=== PATIENT | male | born 1955 | race Caucasian/White ===

== ENCOUNTER 2024-12-17 09:56 | Outpatient (OUT) | payer OTHER, SELFPAY ==
--- NOTE | 2024-12-14 13:45 | V.VEINS.HP ---
Vital Signs 12/17/24 10:16 Height 5 ft 10 in Weight 104.326 kg BMI 33.0 BP 157/75 H BP Location Left Brachial BP Position Sitting BP Cuff Size Large Adult BP Source Automatic Cuff Respiration 18 Pulse 80 Pulse Source Monitor Pulse Oximetry (%) 99 Oxygen Delivery Method Room Air Comment The patient's blood pressure is elevated. Varicose Veins Patient is a 69 year old male in this day as a referral from Dr. Lucas secondary to multiple non-healing wounds which required multiple skin grafts. Patient c/o bilateral leg edema and numbness and weakness along with multiple wounds in the last year. Patient has worn bilateral leg knee high compression stockings for approximately 8-9 months. Patient states no history of varicose vein procedures nor family history of varicose vein disease. Shawn Bell MD personally performed the services described in this documentation, as scribed by Guanaco Leach RN in my presence and it is both accurate and complete. Guanaco Bell RN, am scribing for, and in the presence of, Dr. Shawn Murphy and in the presence of the patient. . thigh: bilateral (symptoms equal bilaterally), knee: bilateral, calf: bilateral, ankle: bilateral and blackwell: bilateral tender 1 year Worsened in recent months: Yes standing and sitting compression stockings Reports erythema, heaviness, edema and leg edema History of lower extremity trauma: No Superficial thrombophlebitis: No Family history of varicose veins: no Has patient had previous lower extremity venous surgery: No Patient has previously received the following treatment(s) for lower extremity varicose veins: Reports none Does patient have a history of : not applicable Has patient had lower extremity venous scan with relux testing: No Support hose used: Yes Problems walking or doing physical activity: Yes How does it affect you: patient now has to use a walker due to weakness Do you walk much: No Do you stand much: No Review of Systems ROS Narrative Shawn Bell MD personally performed the services described in this documentation, as scribed by Guanaco Leach RN in my presence and it is both accurate and complete. Guanaco Bell RN, am scribing for, and in the presence of, Dr. Shawn Murphy and in the presence of the patient. . Status of ROS 10 or more systems reviewed and unremarkable except as noted in history and below Cardiovascular Reports: edema Integumentary/Breast Reports: itching, redness, skin pain, skin swelling, new lesion, changing lesion, non-healing lesion and changes in skin color Neurological Reports: numbness in extremities and weakness in extremities Hematologic/Lymphatic Reports: easy bruising and easy bleeding PFSH PFS Medical History (Updated 12/17/24 @ 10:31 by Guanaco Leach) Neuropathy ?G62.9 - Polyneuropathy, unspecified (ICD-10) Type 2 diabetes mellitus ?E11.9 - Type 2 diabetes mellitus without complications (ICD-10) Atrial fibrillation ?I48.91 - Unspecified atrial fibrillation (ICD-10) Pacemaker ?Z95.0 - Presence of cardiac pacemaker (ICD-10) Varicose veins of bilateral lower extremities with pain ?I83.813 - Varicose veins of bilateral lower extremities with pain (ICD-10) Family History (Updated 12/17/24 @ 10:31 by Guanaco Leach) Other Family history of diabetes mellitus Family history of hypertension Family history of myocardial infarction Family history of stroke Social History (Updated 12/17/24 @ 10:33 by Guanaco Leach) Within the past year, how often did you have a drink containing alcohol: never Score interpretation: A score less than 4 is consistent with normal alcohol consumption. Smoking status: Current some day smoker Non-prescribed substance use: denies use Meds Home Medications and Allergies Home Medications ?Medication ?Instructions ?Recorded ?Confirmed ?Type aspirin 81 mg tablet,delayed 81 mg PO DAILY 12/17/24 12/17/24 History release (Adult Aspirin Regimen) atorvastatin 40 mg tablet 40 mg PO QPM 12/17/24 12/17/24 History chlorthalidone 25 mg tablet 25 mg PO DAILY 12/17/24 12/17/24 History clopidogrel 75 mg tablet (Plavix) 75 mg PO DAILY 12/17/24 12/17/24 History gabapentin 300 mg capsule 300 mg PO DAILY 12/17/24 12/17/24 History lisinopril 30 mg tablet 30 mg PO DAILY 12/17/24 12/17/24 History metformin 500 mg tablet 500 mg PO BID 12/17/24 12/17/24 History Exam Narrative Exam Narrative: Bilateral leg significant edema along with hemosiderin staining. Multiple small slow healing scabbed areas to bilateral legs. IShawn MD personally performed the services described in this documentation, as scribed by Guanaco Leach RN in my presence and it is both accurate and complete. Guanaco Bell RN, am scribing for, and in the presence of, Dr. Shawn Murphy and in the presence of the patient. Constitutional Documenting provider has reviewed patient's vital signs: yes Common normals: oriented x3 Nutritional appearance: overweight Cardio Peripheral pulses: posterior tibial pulses present and dorsalis pedis pulses present Extremity Common normals: normal capillary refill General: calf tenderness and edema Right lower extremity: lower leg Right lower leg: inspection and palpation Left lower extremity: lower leg Left lower leg: inspection and palpation Neuro Common normals: oriented x3 Results Imaging Venous US: Radiologist's impression: Bilateral leg reflux u/s reveals abnormally dilated and incompetent bilateral great and small saphenous veins along with bilateral leg branch saphenous truncal tributary varicosities. Shawn Bell MD personally performed the services described in this documentation, as scribed by Guanaco Leach RN in my presence and it is both accurate and complete. Guanaco Bell RN, am scribing for, and in the presence of, Dr. Shawn Murphy and in the presence of the patient. Assessment and Plan Assessment and Plan (1) Varicose veins of bilateral lower extremities with pain: Plan Patient is to continue use of bilateral leg compression stockings, rest, and elevation. Patient to return for EVLT of right GSV followed by left GSV followed by right SSV and lastly left SSV. Once EVLTs are complete, move forward with microfoam chemical ablation bilateral leg branch saphenous varicosities. Shawn Bell MD personally performed the services described in this documentation, as scribed by Guanaco Leach RN in my presence and it is both accurate and complete. Guanaco Bell RN, am scribing for, and in the presence of, Dr. Shawn Murphy and in the presence of the patient.
--- NOTE | 2024-12-14 13:49 | W.VEIN ---
Discharge Plan Discharge Disposition: Home, Self-Care Plan of Treatment: EVLT of bilateral leg SSV and GSV along with microfoam chemical ablation bilateral leg branch saphenous varicosities Patient Instructions: Endovenous Ablation (DC) Print Language: [place] Citizen Discharge Date/Time: 12/17/24 11:40
--- NOTE | 2024-12-17 10:07 | VEIN_ITS ---
Patient Name: JONATHAN ANTONIO MR#: [id number] : 1955 Exam Date: 12/17/2024 Ordering Doctor: DR IRENE COOPER M.D. RADIOLOGY REPORT PROCEDURE: VC EXT VENOUS REFLUX FREDRICK LMTD COMPARISON: None. INDICATIONS: I83.813 Bilateral painful varicose veins TECHNIQUE: Duplex imaging of the lower extremity to assess the deep and superficial venous system for the presence of deep or superficial venous incompetence and to document the location and severity of disease. The study includes evaluation of the great saphenous vein (GSV), anterior accessory saphenous vein (AASV) and small saphenous vein (SSV). Patient scanned in reverse Trendelenburg and standing. FINDINGS: RIGHT LOWER EXTREMITY: Saphenofemoral Junction Reflux: Yes 7.5mm 2.4 sec GSV: Diam (mm) Reflux/ Time (sec) Proximal Thigh 6.6 Yes 0.8 Mid Thigh 4.5 Yes 1.0 Distal Thigh 3.8 No Prox Calf 3.4 Yes 3.8 Mid Calf 2.6 Yes 0.4 Saphenopopliteal Junction Reflux: 6.3mm Yes 3.4 SSV: Proximal Calf 7.4 Yes 2.0 Mid Calf 4.8 Yes 2.2 AASV: Proximal Thigh 4.0 Yes 1.6 Mid Thigh 1.5 No Distal Thigh Thrombi: No evidence of DVT at this time. Compressibility: Normal. Flow: Severe deep venous reflux. Preforator:Distal medial lower leg 3.4 mm with 0.8s reflux. Mid posterior calf 3.5 mm with 0.5s reflux. Proximal medial lower leg 2.2 mm with 0.4s reflux. Tech Note: Significant plaque noted in [employer]. 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 Compressibility: Partial compression of SSV and SPJ. Flow: Moderate deep venous reflux. Clerk Specialist: No significant incompetent perforators. Tech Note: Complex fluid collection medial left popliteal fossa measures 4.8 x 1.6 x 1.0 cm. Incompetent varicose vein proximal medial lower leg measures 4.6 mm with 0.7s reflux. CONCLUSION: 1. Abnormally dilated and markedly incompetent bilateral great saphenous veins and bilateral small saphenous veins along with associated incompetent branch saphenous varicosities. Dictated by: Shawn Murphy M.D. on 12/17/2024 at 11:10 Approved by: Shawn Murphy M.D. on 12/17/2024 at 11:47
--- NOTE | 2024-12-17 10:07 | VEIN_ITS ---
Patient Name: JONATHAN ANTONIO MR#: [id number] : 1955 Exam Date: 12/17/2024 Ordering Doctor: DR IRENE COOPER M.D. RADIOLOGY REPORT PROCEDURE: FACILITY [facility] - OFFICE VISIT INITIAL COMPARISON: None. PROGRESS NOTES: [age] year old male who presents with a 1 year history of lower extremity swelling, heaviness, tenderness, skin color changes, nonhealing wounds. The patient's left leg symptoms are worse than the right. There has been a progression of symptoms over time. This increases with prolonged leg dependency. The patient describes an improvement with rest and elevation. The patient denies any signs and symptoms to suggest arterial ischemia. The patient describes a family history of diabetes, hypertension, stroke, myocardial infarction. The patient has drinking and smoking history of : Currently smoking; no alcohol consumption.. Patient has a past medical history significant for type 2 diabetes mellitus, atrial fibrillation, varicose veins, frothy, nonhealing wounds. The patient denies a history of deep venous thrombus or pulmonary embolus. See separate history and physical for medication list. No prior treatment for varicose or spider veins. 8-9 months use of compression stockings. After review of nurse notes, history and physical exam I discussed at length the pathophysiology of venous hypertension and possible treatments, therapies and strategies available. We discussed at length the importance of elevating the lower extremities above the level of the heart, increased physical activity and compression stocking use. Ultrasound venous reflux study performed today was discussed at length with the patient. The report demonstrates abnormally dilated and markedly incompetent bilateral great saphenous veins and bilateral small saphenous veins along with associated incompetent branch saphenous varicosities.. PHYSICAL EXAM: The right leg demonstrates scattered varicosities, a few spider veins, several small ulceration, marked edema, marked skin discoloration. The left leg demonstrates scattered varicosities, a few spider veins, several small ulceration, marked edema, marked skin discoloration. Both thighs, legs and feet were symmetrically warm to the touch. Good posterior tibial and dorsalis pedis pulses were present bilaterally. VEIN/ Facility NEW Comprehensive IMPRESSION: 1. Bilateral lower extremity venous insufficiency 2. Bilateral lower extremity varicose veins 3. Bilateral lower extremity subcutaneous edema 4. Known arterial disease 5. CEAP: C6, EC, AP, VA PLAN: 1. Continued use of compression stockings 2. Elevated legs and increased physical activity symptomatic relief 3. Endovenous laser ablation of bilateral great saphenous and bilateral small saphenous veins. 4. Microfoam chemical ablation of bilateral incompetent branch saphenous varicosities. Nurse notes, history and physical were reviewed and confirmed, see attached forms. The nurse was present throughout the physical exam and consultation Dictated by: Shawn Murphy M.D. on 12/17/2024 at 11:47 Approved by: Shawn Murphy M.D. on 12/17/2024 at 12:07
[2024-12-17 10:16] VITALS: BP 157/75; PULSE 80; O2SAT 99; BMI 33.0
== END 2024-12-17 11:40 | disposition home or self-care (01) ==
PROVIDERS: PCP Radiology Diagnostic Radiology; Visit Provider Radiology Diagnostic Radiology
DX: I83.813 Varicose veins of bilateral lower extremities with pain (principal)
CPT/HCPCS: 93970; G0463